=== PATIENT | female | born 1995 | race African-American/Black ===

== ENCOUNTER 2018-09-24 02:15 | Observation (INO) | payer BC ==
[~2018-09-24] VITALS: Ht 170.2 cm; Wt 70.3 kg
[2018-09-24] MEDS ORDERED: LR 1,000 ML IV SCH (03:00)
[2018-09-24 03:14] LABS: BASOPHILS # (AUTO) 0.1 K/uL (0.0-0.2); BASOPHILS % (AUTO) 1.1 % (0.0-2.0); EOSINOPHILS % (AUTO) 0.1 % (0.0-4.0); HEMATOCRIT 37.9 % (36-48); HEMOGLOBIN 12.7 g/dL (12.0-16.0); LYMPHOCYTES # (AUTO) 1.3 K/uL (1.0-5.5); LYMPHOCYTES % (AUTO) 9.5 % (20.5-51.5); MEAN CORPUSCULAR HEMOGLOBIN 31 pg (27-31); MEAN CORPUSCULAR HGB CONC 33 % (32-36); MEAN CORPUSCULAR VOLUME 93 fL (79.0-98.0); MONOCYTES # (AUTO) 0.3 K/uL (0.0-1.0); NEUTROPHILS # (AUTO) 11.6 K/uL (1.8-7.7); NEUTROPHILS % (AUTO) 87.3 % (40.0-70.0); PLATELET COUNT (AUTO) 196 K/uL (130-430); RED CELL DISTRIBUTION WIDTH 11.8 % (9.0-15.0); WHITE BLOOD COUNT (AUTO) 13.3 K/uL (4.5-11.0)
[2018-09-24 03:27] LABS: CALCIUM 9.3 mg/dL (8.4-11.0); CREATININE 0.56 mg/dL (0.55-1.30); POTASSIUM 3.6 mmol/L (3.5-5.1)
[2018-09-24] MEDS ORDERED: ONDANSETRON HCL 4 MG/2 ML VIAL IVP PRN (03:30)
[2018-09-24 03:33] LABS: ALBUMIN 3.5 g/dL (3.4-4.8); TOTAL BILIRUBIN 0.8 mg/dL (0.0-1.0)
[2018-09-24] MEDS ORDERED: ONDANSETRON HCL 4 MG/2 ML VIAL ONE (03:33)
== END 2018-09-24 10:40 | disposition home or self-care (01) ==
LOC: SPU 02:15
PROVIDERS: ADMIT Specialist; ATTEND Specialist
DX: O21.2 Late vomiting of pregnancy (principal); Z3A.35 35 weeks gestation of pregnancy
CPT/HCPCS: 36415; 80053; 81002; 85025; 96374; G0378; J2405

== ENCOUNTER 2018-10-18 03:10 | Inpatient (IN) | payer BC ==
[~2018-10-18] VITALS: Ht 170.2 cm; Wt 74.8 kg
[2018-10-18] MEDS ORDERED: LR 1,000 ML IV ONE (03:49)
[2018-10-18] MEDS ORDERED: AMPICILLIN SODIUM 1 GM in NS 50 ML IV SCH (04:00)
[2018-10-18] MEDS ORDERED: TERBUTALINE SULFATE 1 MG/ML VIAL SUBCUT ONE (04:00)
[2018-10-18] MEDS ORDERED: AMPICILLIN SODIUM 2 GM in NS 100 ML IV ONE (04:00)
[2018-10-18 05:14] LABS: HEMATOCRIT 36.4 % (36-48); HEMOGLOBIN 12.2 g/dL (12.0-16.0); MEAN CORPUSCULAR HEMOGLOBIN 31 pg (27-31); MEAN CORPUSCULAR VOLUME 93 fL (79.0-98.0); RED BLOOD CELL COUNT(AUTO) 3.93 MIL/uL (4.2-6.2); WHITE BLOOD COUNT (AUTO) 12.1 K/uL (4.5-11.0)
[2018-10-18 05:15] LABS: BASOPHILS % (AUTO) 0.4 % (0.0-2.0); EOSINOPHILS # (AUTO) 0.1 K/uL (0.0-0.4); EOSINOPHILS % (AUTO) 0.6 % (0.0-4.0); LYMPHOCYTES # (AUTO) 2.7 K/uL (1.0-5.5); LYMPHOCYTES % (AUTO) 22.4 % (20.5-51.5); MEAN CORPUSCULAR HGB CONC 33 % (32-36); MONOCYTES # (AUTO) 0.7 K/uL (0.0-1.0); MONOCYTES % (AUTO) 5.6 % (1.7-9.3); NEUTROPHILS # (AUTO) 8.6 K/uL (1.8-7.7); PLATELET COUNT (AUTO) 180 K/uL (130-430); RED CELL DISTRIBUTION WIDTH 12.9 % (9.0-15.0)
[2018-10-18] MEDS ORDERED: OXYTOCIN/0.9 % SODIUM CHLORIDE 1,000 ML IV SCH (05:15)
[2018-10-18] MEDS: LR 1,000 ML IV SCH ×3 (06:01→18:05)
[2018-10-18] MEDS ORDERED: AMPICILLIN SODIUM 2 GM VIAL ONE (06:06)
[2018-10-18] MEDS ORDERED: OXYTOCIN/0.9 % SODIUM CHLORIDE 1,000 ML IV ONE (06:37)
[2018-10-18 06:55] VITALS: BP_SYST 116
[2018-10-18 08:01] LABS: BARBITURATE, URINE NEGATIVE (NEG <=200); BENZODIAZEPINE, URINE NEGATIVE (NEG <=150); CANNABINOID, URINE NEGATIVE (NEG <=50); COCAINE, URINE NEGATIVE (NEG <=150); METHAMPHETAMINES SCREEN,URINE NEGATIVE (NEG <=500); OPIATE, URINE NEGATIVE (NEG <=100); PHENCYCLIDINE SCREEN,URINE NEGATIVE (NEG <=25); UR TRICYCLIC ANTIDEPRESSANTS NEGATIVE (NEG <=300); URINE AMPHETAMINE NEGATIVE (NEG <=500); URINE METHADONE NEGATIVE (NEG <=200); URINE OXYCODONE SCREEN NEGATIVE (NEG <=100); URINE PROPOXYPHENE SCREEN NEGATIVE (NEG <=300)
[2018-10-18] MEDS: AMPICILLIN SODIUM 1 GM in NS 50 ML IV SCH ×4 (10:00→22:25)
[2018-10-18] MEDS ORDERED: ROPIVACAINE 0.2% 100 ML ONE ×2 (10:11→17:52)
[2018-10-18] MEDS ORDERED: fentaNYL CITRATE/PF 100 MCG/2 ML AMP ONE (10:11)
[2018-10-18] MEDS ORDERED: FENT2mCg/mL-ROPIVA0.2%/NS EPID 150 ML EP SCH (10:11)
[2018-10-18] MEDS ORDERED: LR 500 ML IV ONE (12:18)
[2018-10-18] MEDS ORDERED: ONDANSETRON HCL 4 MG/2 ML VIAL IVP PRN (18:20)
[2018-10-18] MEDS ORDERED: ONDANSETRON HCL 4 MG/2 ML VIAL ONE (18:53)
[2018-10-18] MEDS ORDERED: AMPICILLIN SODIUM 1 GM VIAL ONE (22:23)
[2018-10-18] MEDS: NALBUPHINE HCL 10 MG/ML AMP IVP PRN ×2 (22:28→23:09)
[2018-10-18] MEDS ORDERED: NALBUPHINE HCL 10 MG/ML AMP ONE (22:31)
[2018-10-19] MEDS ORDERED: ROPIVACAINE 0.2% 100 ML ONE (00:02)
[2018-10-19] MEDS ORDERED: AMPICILLIN SODIUM 1 GM VIAL ONE (02:20)
[2018-10-19] MEDS: AMPICILLIN SODIUM 1 GM in NS 50 ML IV SCH (02:25)
[2018-10-19] MEDS: LR 1,000 ML IV SCH (02:25)
[2018-10-19] MEDS ORDERED: fentaNYL CITRATE/PF 100 MCG/2 ML AMP ONE (03:28)
[2018-10-19] MEDS ORDERED: METHYLERGONOVINE MALEATE 0.2 MG/ML AMP ONE (04:30)
[2018-10-19] MEDS ORDERED: METHYLERGONOVINE MALEATE 0.2 MG/ML AMP IM ONE (04:30)
[2018-10-19] MEDS ORDERED: OXYTOCIN/0.9 % SODIUM CHLORIDE 1,000 ML IV ONE (04:39)
[2018-10-19] MEDS ORDERED: OXYTOCIN/0.9 % SODIUM CHLORIDE 1,000 ML IV SCH (04:39)
[2018-10-19] MEDS ORDERED: LANOLIN 7 GM OINT. TP PRN (04:45)
[2018-10-19] MEDS ORDERED: MEASLES,MUMPS&RUBELLA VACC/PF 12500 UNIT/0.5 ML VIAL SUBQ PRN (04:45)
[2018-10-19] MEDS ORDERED: RHO(D) IMMUNE GLOBULIN/MALTOSE 1500 UNITS/1.3 ML (WINHRO) IM PRN (04:45)
[2018-10-19] MEDS ORDERED: HYDROCORTISONE 0.5%, 28.35 GM TOPICAL CREAM TP PRN (04:45)
[2018-10-19] MEDS ORDERED: WITCH HAZEL LEAF 1 MED.PAD MED.PAD TP PRN (04:45)
[2018-10-19] MEDS ORDERED: DIPH-TET-PERTUS Vaccine 0.5 ML VIAL (ADACEL) I.M. PRN (04:45)
[2018-10-19] MEDS ORDERED: DERMOPLAST SPRAY TP PRN (04:45)
[2018-10-19] MEDS ORDERED: METHYLERGONOVINE MALEATE 0.2 MG TABLET PO PRN (04:45)
[2018-10-19] MEDS ORDERED: ANUSOL 1 EA SUPP.RECT (PREPARATION H) RC PRN (04:45)
[2018-10-19] MEDS: IBUPROFEN 600 MG TABLET PO SCH ×3 (05:46→18:05)
[2018-10-19 07:06] LABS: HEPATITIS B SURFACE AG Negative (Negative)
[2018-10-19] MEDS ORDERED: HYDROcodone/ACETAMIN 5-325 MG TAB (NORCO/ VICODIN) PO PRN (08:15)
[2018-10-19] MEDS: OXYCODONE/ACETAMINOPHEN 5-325 TABLET PO PRN ×3 (09:26→21:40)
[2018-10-19] MEDS: DOCUSATE SODIUM 100 MG CAPSULE PO PRN (09:26)
[2018-10-19 13:09] LABS: RUBELLA AB, IgG 1.64 index (Immune >0.99)
[2018-10-19] MEDS ORDERED: LIDOCAINE PF 1% 30ML(POUR BTL) INJ ONE (13:59)
[2018-10-19] MEDS ORDERED: TEMAZEPAM 15 MG CAPSULE PO PRN (21:00)
[2018-10-20] MEDS: DOCUSATE SODIUM 100 MG CAPSULE PO PRN (00:27)
[2018-10-20] MEDS: IBUPROFEN 600 MG TABLET PO SCH ×2 (00:28→06:07)
[2018-10-20 06:01] LABS: BASOPHILS # (AUTO) 0.1 K/uL (0.0-0.2); BASOPHILS % (AUTO) 0.5 % (0.0-2.0); EOSINOPHILS # (AUTO) 0.3 K/uL (0.0-0.4); EOSINOPHILS % (AUTO) 1.6 % (0.0-4.0); HEMATOCRIT 31.7 % (36-48); HEMOGLOBIN 10.4 g/dL (12.0-16.0); LYMPHOCYTES # (AUTO) 3.1 K/uL (1.0-5.5); LYMPHOCYTES % (AUTO) 18.5 % (20.5-51.5); MEAN CORPUSCULAR HEMOGLOBIN 31 pg (27-31); MEAN CORPUSCULAR HGB CONC 33 % (32-36); MEAN CORPUSCULAR VOLUME 93 fL (79.0-98.0); MONOCYTES # (AUTO) 0.9 K/uL (0.0-1.0); MONOCYTES % (AUTO) 5.7 % (1.7-9.3); NEUTROPHILS # (AUTO) 12.2 K/uL (1.8-7.7); NEUTROPHILS % (AUTO) 73.7 % (40.0-70.0); PLATELET COUNT (AUTO) 184 K/uL (130-430); RED CELL DISTRIBUTION WIDTH 12.5 % (9.0-15.0); WHITE BLOOD COUNT (AUTO) 16.6 K/uL (4.5-11.0)
[2018-10-20] MEDS: OXYCODONE/ACETAMINOPHEN 5-325 TABLET PO PRN (10:01)
== END 2018-10-20 17:07 | disposition home or self-care (01) | DRG 807 ==
LOC: SPU 03:10
PROVIDERS: ADMIT Specialist; ATTEND Specialist
PROC: 10E0XZZ Delivery of Products of Conception, External Approach (ICD-10-PCS; principal; 2018-10-20)
PROC: 0KQM0ZZ Repair Perineum Muscle, Open Approach (ICD-10-PCS; 2018-10-20)
PROC: 3E0R3BZ Introduction of Anesthetic Agent into Spinal Canal, Percutaneous Approach (ICD-10-PCS; 2018-10-20)
PROC: 00HU33Z Insertion of Infusion Device into Spinal Canal, Percutaneous Approach (ICD-10-PCS; 2018-10-20)
DX: O69.81X0 Labor and delivery complicated by cord around neck, without compression, not applicable or unspecified (principal); Z37.0 Single live birth; O70.1 Second degree perineal laceration during delivery; Z3A.38 38 weeks gestation of pregnancy
CPT/HCPCS: 36415; 76805-TC; 80307; 85025; 86592; 86762; 86886; 86900; 86901; 87081; 87340; 87536; 90715; J0290; J2001; J2210; J2300; J2405; J2590; J2795; J3010; J7120

== ENCOUNTER 2020-03-16 04:48 | Emergency (ER) | payer BC ==
[~2020-03-16] VITALS: Ht 172.7 cm; Wt 81.6 kg
[2020-03-16 04:50] VITALS: BP_SYST 105
--- NOTE | 2020-03-16 05:00 | NUR ---
Patient to ER bed H1 to gown for evaluation. Side rails up.
--- NOTE | 2020-03-16 05:03 | NUR ---
ER at bedside examining patient.
--- NOTE | 2020-03-16 05:03 | NUR ---
Patient states " didn't try to harm herself or someone else."
--- NOTE | 2020-03-16 05:03 | NUR ---
Patient came from home, BIB by family. C/O Alcohol intoxication x today. Patient states " took Ativan 5 mg and Lorraine half of pint." per patient, her father of baby called PD and PD told her to go to ER. Hx Anxiety and Depression.
[2020-03-16] MEDS ORDERED: NACL 0.9% 1,000 ML IV ONE ×2 (05:15→08:00)
--- NOTE | 2020-03-16 05:30 | NUR ---
# 22 gauge angiocath placed to right hand. Use of asceptic technique. Opsite placed over site. Blood return noted. Blood for lab drawn from site. Flushed with 10 cc of normal saline. No evidence of infiltration noted. Patient tolerated well.
[2020-03-16 05:41] LABS: BILIRUBIN,URINE NEGATIVE (NEGATIVE); BLOOD, URINE NEGATIVE (NEGATIVE); CLARITY/URINE SL CLOUDY (CLEAR); COLOR,URINE YELLOW (YELLOW); GLUCOSE,URINE NEGATIVE (NEGATIVE); KETONES,URINE NEGATIVE (NEGATIVE); LEUKOCYTE ESTERASE ,URINE 2+ (NEGATIVE); NITRITE, URINE NEGATIVE (NEGATIVE); PROTEIN URINE NEGATIVE (NEGATIVE); UROBILINOGEN,URINE 0.2 (0.2-1.0)
[2020-03-16] MEDS ORDERED: cefTRIAXone 1 GM in D5W 50 ML IV ONE (05:45)
[2020-03-16 05:50] LABS: BACTERIA,URINE MODERATE /HPF (None Seen); FINE GRANULAR CASTS,URINE 0-10 /LPF (None Seen); MUCUS,URINE 1+ /LPF (None Seen); RBC,URINE 0-3 /HPF (0-3); WBC,URINE 20-50 /HPF (0-3)
[2020-03-16 05:51] LABS: BARBITURATE, URINE NEGATIVE (NEG <=200)
[2020-03-16 05:52] LABS: BENZODIAZEPINE, URINE POSITIVE (NEG <=150); CANNABINOID, URINE NEGATIVE (NEG <=50); COCAINE, URINE POSITIVE (NEG <=150); METHAMPHETAMINES SCREEN,URINE NEGATIVE (NEG <=500); OPIATE, URINE NEGATIVE (NEG <=100); PHENCYCLIDINE SCREEN,URINE NEGATIVE (NEG <=25); UR TRICYCLIC ANTIDEPRESSANTS NEGATIVE (NEG <=300); URINE AMPHETAMINE NEGATIVE (NEG <=500); URINE METHADONE NEGATIVE (NEG <=200); URINE OXYCODONE SCREEN NEGATIVE (NEG <=100); URINE PROPOXYPHENE SCREEN NEGATIVE (NEG <=300)
[2020-03-16 06:02] LABS: BASOPHILS # (AUTO) 0.6 K/uL (0.0-0.2); BASOPHILS % (AUTO) 3.7 % (0.0-2.0); EOSINOPHILS # (AUTO) 0.2 K/uL (0.0-0.4); HEMATOCRIT 39.3 % (36-48); HEMOGLOBIN 13.1 g/dL (12.0-16.0); LYMPHOCYTES # (AUTO) 1.7 K/uL (1.0-5.5); LYMPHOCYTES % (AUTO) 10.8 % (20.5-51.5); MEAN CORPUSCULAR HEMOGLOBIN 31 pg (27-31); MEAN CORPUSCULAR HGB CONC 33 % (32-36); MEAN CORPUSCULAR VOLUME 93 fL (79.0-98.0); MONOCYTES # (AUTO) 0.9 K/uL (0.0-1.0); MONOCYTES % (AUTO) 5.9 % (1.7-9.3); NEUTROPHILS # (AUTO) 12.2 K/uL (1.8-7.7); NEUTROPHILS % (AUTO) 78.6 % (40.0-70.0); PLATELET COUNT (AUTO) 256 K/uL (130-430); RED BLOOD CELL COUNT(AUTO) 4.25 MIL/uL (4.2-6.2); RED CELL DISTRIBUTION WIDTH 13.4 % (9.0-15.0); WHITE BLOOD COUNT (AUTO) 15.5 K/uL (4.8-10.8)
[2020-03-16] MEDS ORDERED: cefTRIAXone 1 GM VIAL ONE (06:19)
--- NOTE | 2020-03-16 07:16 | NUR ---
Care of patient endorsed to EMELIA Alejandra.
[2020-03-16 07:29] LABS: ANION GAP 10 (5-15); CALCIUM 8.9 mg/dL (8.4-11.0); CHLORIDE 103 mmol/L (98-107); CREATININE 0.95 mg/dL (0.55-1.30); GFR AFRICAN AMERICAN 95 mL/min (>90); GLUCOSE 101 mg/dL (70-99); POTASSIUM 3.8 mmol/L (3.5-5.1); SODIUM SERUM 140 mmol/L (136-145); TOTAL BILIRUBIN 0.7 mg/dL (0.0-1.0); UREA NITROGEN, BLOOD 10 mg/dL (8-21)
[2020-03-16 07:30] LABS: ACETAMINOPHEN < 1 ug/mL (1-30); ALANINE AMINOTRANSFERASE 17 U/L (12-78); ALBUMIN 4.1 g/dL (3.4-4.8); ALCOHOL, BLOOD < 3 mg/dL (<10); ASPARTATE AMINOTRANSFERASE 17 U/L (10-37)
--- NOTE | 2020-03-16 07:45 | NUR ---
pt asleep easily awaken, denies any complaints. awaiting MD re-eval
[2020-03-16] MEDS ORDERED: cefTRIAXone 1 GM IVPB PREMIX 50 ML IV ONE (08:00)
--- NOTE | 2020-03-16 09:00 | NUR ---
pt s/u in bed, IV infusing to gravity, awaiting denies any complaints requesting to leave
--- NOTE | 2020-03-16 09:30 | NUR ---
pt requesting to leave, states she feels better, denies any suicidal or homicidal ideations, aware and awaiting Tele-Psych. consult
--- NOTE | 2020-03-16 10:27 | NUR ---
pt took her IV out, catheter intact on the bed. Pt is not in bed, currently waiting for tele med/ psyc. Pt eloped at this time.
--- NOTE | 2020-03-16 10:30 | NUR ---
pt eloped not in [facility] at this time, no answer in waiting room.
== END 2020-03-16 10:30 | disposition left against medical advice (07) ==
LOC: SED 04:48
DX: T42.4X1A Poisoning by benzodiazepines, accidental (unintentional), initial encounter (principal); F19.10 Other psychoactive substance abuse, uncomplicated; N39.0 Urinary tract infection, site not specified; F32.9 Major depressive disorder, single episode, unspecified; Y92.89 Other specified places as the place of occurrence of the external cause
CPT/HCPCS: 36415; 80053; 80307; 81000; 81025; 82140; 85025; 87086; 96365; 99284; G0480; G0481; G0482; J0696; J7030

== ENCOUNTER 2021-11-08 20:10 | Emergency (ER) | payer BC ==
[~2021-11-08] VITALS: Ht 170.2 cm; Wt 90.7 kg
[2021-11-08 20:13] VITALS: BP_SYST 134
[2021-11-08] MEDS ORDERED: PRED20TA PO (23:33)
[2021-11-08] MEDS ORDERED: DIPH25CA83 PO (23:33)
[2021-11-08] MEDS: predniSONE 20 MG TABLET PO ONE (23:40)
[2021-11-08 23:54] VITALS: BP_SYST 132
== END 2021-11-08 23:54 | disposition home or self-care (01) ==
LOC: SED 20:10
DX: L50.9 Urticaria, unspecified (principal); F32.A Depression, unspecified; Z79.899 Other long term (current) drug therapy; Z79.52 Long term (current) use of systemic steroids
CPT/HCPCS: 99283; J7512

== ENCOUNTER 2021-11-10 19:30 | Emergency (ER) | payer BC ==
[~2021-11-10] VITALS: Ht 170.2 cm; Wt 90.7 kg
[~2021-11-10 19:30] MED LIST: DIPH25CA83 PO; PRED20TA PO
[2021-11-10 19:52] VITALS: BP_SYST 121
[2021-11-10] MEDS ORDERED: DIPHENHYDRAMINE INJ 50 MG/ML VIAL IM ONE (20:00)
[2021-11-10] MEDS ORDERED: methylPREDNISolone SOD SUCC/PF 62.5 MG/ML VIAL IM ONE (20:00)
--- NOTE | 2021-11-10 20:00 | NUR ---
AMBULATED INTO ED 4 AT THIS TIME. PATIENT STATES SHE WAS SEEN ON THE FOR THE SAME COMPLAINT WITH NO RELIEF. HAS ITCHING AND HYVES ACROSS CHEST AND INNER THIGHS. DENIES SOB/CHEST PAIN/N/V
[2021-11-10] MEDS ORDERED: EPINEPHrine 1 MG/ML VIAL SUBCUT ONE (20:30)
[2021-11-10] MEDS ORDERED: EPINEPHrine 1 MG/ML AMP ONE (20:37)
[2021-11-10] MEDS ORDERED: PRED20TA PO (21:13)
[2021-11-10] MEDS ORDERED: FEXO180T94 PO (21:13)
--- NOTE | 2021-11-10 21:18 | NUR ---
PATIENT CLEARED FOR DISHCARGE AT THIS TIME, DISCHARGED BY DR LYLE WITH NO OTHER COMPLAINTS OR CONECRNS AT THIS TIME FOLLOWING DISCHARGE TEACHING. ADVISED TO FOLLOW UP WITH PCP AND RETURN IF CONDITION WORSENS.
[2021-11-10 21:19] VITALS: BP_SYST 116
== END 2021-11-10 21:18 | disposition home or self-care (01) ==
LOC: SED 19:30
DX: L50.9 Urticaria, unspecified (principal); F32.A Depression, unspecified; Z79.52 Long term (current) use of systemic steroids; Z79.899 Other long term (current) drug therapy
CPT/HCPCS: 96372; 99284; J0171; J1200; J2930